=== PATIENT | male | born 1940 | race Caucasian/White ===

== ENCOUNTER 2018-02-09 09:50 | Outpatient (CLI) | payer OTHER ==
[~2018-02-09 09:50] MED LIST: CIPRO500 MG PO; COZAAR50 MG PO; KETO10TA2 PO; SYNTHROID50 MCG PO
== END 2018-02-09 11:25 | disposition home or self-care (01) ==
LOC: TOM 09:50
DX: K56.50 Intestinal adhesions [bands], unspecified as to partial versus complete obstruction (principal); K62.5 Hemorrhage of anus and rectum

== ENCOUNTER → 2018-05-05 | Outpatient (CLI) | payer OTHER | END | disposition home or self-care (01) | LOC: TOM 09:20 | DX: I71.2 Thoracic aortic aneurysm, without rupture (principal) | CPT/HCPCS: 71270; Q9965 ==

== ENCOUNTER 2019-04-05 08:59 | Emergency (ER) | payer OTHER ==
[~2019-04-05] VITALS: Ht 175.3 cm; Wt 73.5 kg
== END 2019-04-05 21:42 | disposition home or self-care (01) ==
LOC: ER 08:59
DX: K92.2 Gastrointestinal hemorrhage, unspecified (principal); R42 Dizziness and giddiness

== ENCOUNTER 2020-09-07 08:01 | Inpatient (IN) | payer OTHER ==
[~2020-09-07] VITALS: Ht 175.3 cm; Wt 74.8 kg
== END 2020-09-11 11:43 | disposition home or self-care (01) | DRG 379 ==
LOC: ER 08:01 → MEDI 19:02
PROVIDERS: ADMIT Internal Medicine; ATTEND Internal Medicine
PROC: 0DB78ZX Excision of Stomach, Pylorus, Via Natural or Artificial Opening Endoscopic, Diagnostic (ICD-10-PCS; principal; 2020-09-10)
PROC: BW21Y0Z Computerized Tomography (CT Scan) of Abdomen and Pelvis using Other Contrast, Unenhanced and Enhanced (ICD-10-PCS; 2020-09-10)
PROC: BW28ZZZ Computerized Tomography (CT Scan) of Head (ICD-10-PCS; 2020-09-10)
DX: K25.0 Acute gastric ulcer with hemorrhage (principal); K29.70 Gastritis, unspecified, without bleeding; D50.0 Iron deficiency anemia secondary to blood loss (chronic); E03.9 Hypothyroidism, unspecified; I10 Essential (primary) hypertension; Z20.822 Contact with and (suspected) exposure to COVID-19